=== PATIENT | male | born 1980 | race Caucasian/White ===

== ENCOUNTER 2019-05-26 20:38 | Emergency (ER) | payer SELFPAY ==
[~2019-05-26] VITALS: Ht 177.8 cm; Wt 86.4 kg
[~2019-05-26 20:38] MED LIST: CYCL-394 PO; NO HOME MEDS; ONDA4TAB59 PO
[2019-05-26 20:58] VITALS: BP 114/67
[2019-05-26] MEDS ORDERED: LIDOcaine 1% W/epiNEPHrine 1:100,000 20ml vial SQ ONE (21:40)
[2019-05-26] MEDS ORDERED: morphine 4 MG/ML inj SYRINge IV PRN (21:45)
[2019-05-26] MEDS ORDERED: ondansetron/PF 4mg/2ml inj IV ONE (22:10)
[2019-05-26] MEDS: morphine 4 MG/ML inj SYRINge IV PRN ×2 (22:35→23:04)
[2019-05-26] MEDS ORDERED: SULF1TAB49 PO (23:05)
[2019-05-26] MEDS ORDERED: CEPH500C5 PO (23:05)
[2019-05-26] MEDS ORDERED: HYDR-4383 PO (23:06)
== END 2019-05-26 23:42 | disposition home or self-care (01) ==
LOC: ER 20:38
DX: L02.215 Cutaneous abscess of perineum (principal); J45.909 Unspecified asthma, uncomplicated; F12.90 Cannabis use, unspecified, uncomplicated; Z79.899 Other long term (current) drug therapy
CPT/HCPCS: 10060; 87070; 87077; 87185; 87186; 96374; 96375; 96376; 99283; J2270; J2405; 56405; 99284

== ENCOUNTER 2020-06-04 19:00 | Emergency (ER) | payer BC ==
[~2020-06-04] VITALS: Ht 177.8 cm; Wt 79.5 kg
[~2020-06-04 19:00] MED LIST changes: +HYDR-4383 PO
[2020-06-04 19:35] LABS: BASOPHILS # (AUTO) 0.1 X10'3 (0-0.2); BASOPHILS % (AUTO) 0.7 % (0-1); EOSINOPHILS % (AUTO) 0.3 % (0-6); HEMATOCRIT 48.5 % (42.0-52.0); HEMOGLOBIN 16.5 g/dl (14.0-17.9); LYMPHOCYTES # (AUTO) 1.6 X10'3 (1.1-4.8); LYMPHOCYTES % (AUTO) 18.9 % (21-51); MEAN CORPUSCULAR HEMOGLOBIN 30.6 PG (27.0-31.0); MEAN CORPUSCULAR HGB CONC 34.1 g/dL (33.0-36.5); MEAN CORPUSCULAR VOLUME 89.9 FL (78-98); MONOCYTES # (AUTO) 0.8 X10'3 (0-0.9); MONOCYTES % (AUTO) 9.4 % (2-12); NEUTROPHILS # (AUTO) 6.1 X10'3 (1.8-7.7); NEUTROPHILS % (AUTO) 70.7 % (42-75); PLATELET COUNT 301 X10'3 (140-440); RED BLOOD COUNT 5.39 X10'6 (4.70-6.10); RED CELL DISTRIBUTION WIDTH 12.9 % (11.5-14.5); WHITE BLOOD COUNT 8.7 X10'3 (4.5-11.0)
[2020-06-04] MEDS ORDERED: ondansetron/PF 4mg/2ml inj IV ONE ×2 (19:35→23:10)
[2020-06-04] MEDS ORDERED: normal saline 1000ml 1,000 ML IV ONE ×2 (19:35)
[2020-06-04] MEDS ORDERED: proCHLORperazine 10 MG/2 ml inj IV ONE ×2 (19:35→23:10)
[2020-06-04] MEDS ORDERED: diphenhydrAMINE 50 mg/ml inj IV ONE ×2 (19:35→23:10)
[2020-06-04 19:48] LABS: CLARITY,URINE CLEAR (Clear); COLOR,URINE YELLOW (Yellow); GLUCOSE, URINE NEGATIVE (Neg); KETONES,URINE >=80 mg/dl (Neg); LEUKOCYTE ESTERASE ,URINE NEGATIVE (Neg); NITRITES, URINE NEGATIVE (Neg); OCCULT BLOOD,URINE NEGATIVE (Neg); PROTEIN,URINE 30 mg/dl (Neg)
[2020-06-04 19:49] LABS: UA COLLECTION TYPE URINAL
[2020-06-04 19:49] LABS: ALANINE AMINOTRANSFERASE 13 U/L (12-78); ALBUMIN 4.9 G/DL (3.4-5.0); ALBUMIN/GLOBULIN RATIO 1.3 (1.1-1.5); ALKALINE PHOSPHATASE 68 IU/L (46-116); ANION GAP 18 (8-16); ASPARTATE AMINO TRANSFERASE 11 U/L (10-37); BILIRUBIN,TOTAL 0.9 MG/DL (0.1-1.0); BLOOD UREA NITROGEN 19 MG/DL (7-18); BUN/CREATININE RATIO 17.3 (5.4-32.0); CALCIUM 10.2 MG/DL (8.5-10.1); CHLORIDE 100 MMOL/L (99-107); GLUCOSE 177 MG/DL (70-104); LIPASE 54 U/L (73-393); POTASSIUM 3.5 MMOL/L (3.5-5.1); SODIUM 140 MMOL/L (135-145); TOTAL CARBON DIOXIDE 22.5 MMOL/L (24-32); TOTAL PROTEIN 8.7 G/DL (6.4-8.2); eGFR 75 ML/MIN
[2020-06-04 19:54] LABS: SQUAMOUS EPITHELIAL CELL,UR FEW /LPF (FEW)
[2020-06-04 19:55] LABS: MUCUS STRANDS MODERATE /LPF (Neg); RBC,URINE NONE SEEN /HPF (0-2); WBC,URINE 0-4 /HPF (0-4)
[2020-06-04 19:56] LABS: BACTERIA,URINE FEW /HPF (Neg)
[2020-06-04 19:59] LABS: SPERM FEW /HPF (NEGATIVE)
--- NOTE | 2020-06-04 22:35 | NUR ---
ophelia states pt can have water, so I gave him a pitcher of ice water per pt. request.
[2020-06-04] MEDS ORDERED: ONDA4TAB6 PO (22:37)
[2020-06-04] MEDS ORDERED: LORazepam 2 mg/ml vial IV ONE (23:15)
[2020-06-04] MEDS ORDERED: LORazepam 2 mg/ml vial IM ONE (23:20)
[2020-06-04] MEDS ORDERED: diphenhydrAMINE 50 mg/ml inj IM ONE (23:20)
[2020-06-04] MEDS ORDERED: proCHLORperazine 10 MG/2 ml inj IM ONE (23:20)
[2020-06-04 23:32] VITALS: BP 112/61
== END 2020-06-04 23:33 | disposition home or self-care (01) ==
LOC: ER 19:01
DX: R11.2 Nausea with vomiting, unspecified (principal); R50.9 Fever, unspecified; R10.9 Unspecified abdominal pain; R61 Generalized hyperhidrosis; J45.909 Unspecified asthma, uncomplicated; F12.90 Cannabis use, unspecified, uncomplicated; Z72.89 Other problems related to lifestyle; Z79.899 Other long term (current) drug therapy
CPT/HCPCS: 36415; 74176; 80053; 81001; 83605; 83690; 85025; 96361; 96372; 96374; 96375; 99285; J0780; J1200; J2060; J2405; J7030

== ENCOUNTER 2020-06-06 11:37 | Emergency (ER) | payer BC ==
[~2020-06-06] VITALS: Ht 177.8 cm; Wt 81.8 kg
[~2020-06-06 11:37] MED LIST changes: +ONDA4TAB6 PO
[2020-06-06] MEDS ORDERED: ondansetron/PF 4mg/2ml inj IV ONE ×2 (11:50→15:05)
[2020-06-06] MEDS ORDERED: normal saline 1000ML IV soln IVB ONE ×3 (11:50→15:05)
[2020-06-06 12:34] LABS: BASOPHILS % (AUTO) 0.5 % (0-1); EOSINOPHILS % (AUTO) 0.1 % (0-6); HEMATOCRIT 45.6 % (42.0-52.0); HEMOGLOBIN 15.3 g/dl (14.0-17.9); LYMPHOCYTES # (AUTO) 1.2 X10'3 (1.1-4.8); LYMPHOCYTES % (AUTO) 14.4 % (21-51); MEAN CORPUSCULAR HEMOGLOBIN 30.3 PG (27.0-31.0); MEAN CORPUSCULAR HGB CONC 33.6 g/dL (33.0-36.5); MEAN CORPUSCULAR VOLUME 90.4 FL (78-98); MEAN PLATELET VOLUME 8.8 FL (7.4-10.4); MONOCYTES # (AUTO) 0.4 X10'3 (0-0.9); MONOCYTES % (AUTO) 4.8 % (2-12); NEUTROPHILS # (AUTO) 6.6 X10'3 (1.8-7.7); NEUTROPHILS % (AUTO) 80.2 % (42-75); PLATELET COUNT 278 X10'3 (140-440); RED BLOOD COUNT 5.04 X10'6 (4.70-6.10); RED CELL DISTRIBUTION WIDTH 12.9 % (11.5-14.5); WHITE BLOOD COUNT 8.2 X10'3 (4.5-11.0)
[2020-06-06 12:46] LABS: PARTIAL THROMBOPLASTIN TIME 23 SECONDS (22-32)
[2020-06-06 12:48] LABS: ALANINE AMINOTRANSFERASE 26 U/L (12-78); ALBUMIN 4.6 G/DL (3.4-5.0); ALBUMIN/GLOBULIN RATIO 1.4 (1.1-1.5); ALKALINE PHOSPHATASE 60 IU/L (46-116); ANION GAP 15 (8-16); ASPARTATE AMINO TRANSFERASE 32 U/L (10-37); BILIRUBIN,TOTAL 0.8 MG/DL (0.1-1.0); BLOOD UREA NITROGEN 17 MG/DL (7-18); CALCIUM 9.7 MG/DL (8.5-10.1); CHLORIDE 103 MMOL/L (99-107); CREATININE 1.06 MG/DL (0.60-1.10); GLUCOSE 201 MG/DL (70-104); MAGNESIUM 1.8 MG/DL (1.5-2.4); POTASSIUM 3.2 MMOL/L (3.5-5.1); SODIUM 141 MMOL/L (135-145); TOTAL CARBON DIOXIDE 23.1 MMOL/L (24-32); eGFR 79 ML/MIN
[2020-06-06 12:49] LABS: ETHANOL < 0.010 GM/DL (0.0-0.010)
[2020-06-06] MEDS ORDERED: magnesium 2GM in 50ml NS 50 ML IV ONE (13:00)
[2020-06-06] MEDS ORDERED: potassium Cl 10 mEq/100mL bag IV ONE ×2 (13:00→15:05)
[2020-06-06] MEDS ORDERED: pantoprazole 40 MG vial IV ONE (15:05)
[2020-06-06] MEDS ORDERED: haloperidol lactate 5mg/ml inj IM ONE (15:10)
[2020-06-06] MEDS ORDERED: PROM12.512 PO (16:03)
[2020-06-06] MEDS ORDERED: PANT20TA18 PO (16:03)
[2020-06-06 17:12] VITALS: BP 132/64
== END 2020-06-06 17:07 | disposition home or self-care (01) ==
LOC: ER 11:37
DX: R55 Syncope and collapse (principal); E86.0 Dehydration; K29.70 Gastritis, unspecified, without bleeding; E87.6 Hypokalemia; R11.2 Nausea with vomiting, unspecified; R53.1 Weakness; J45.909 Unspecified asthma, uncomplicated; F12.90 Cannabis use, unspecified, uncomplicated; Z72.89 Other problems related to lifestyle; Z79.2 Long term (current) use of antibiotics
CPT/HCPCS: 36415; 80053; 80320; 83735; 85025; 85610; 85730; 93005; 96361; 96365; 96366; 96368; 96372; 96375; 96376; 99285; C9113; J1630; J2405; J3475; J3480; J7030

== ENCOUNTER 2020-06-08 23:13 | Emergency (ER) | payer BC ==
[~2020-06-08] VITALS: Ht 177.8 cm; Wt 81.1 kg
[~2020-06-08 23:13] MED LIST changes: +PANT20TA18 PO; +PROM12.512 PO
[2020-06-08] MEDS ORDERED: haloperidol lactate 5mg/ml inj IM ONE (23:35)
[2020-06-08] MEDS ORDERED: LORazepam 2 mg/ml vial IM ONE (23:35)
[2020-06-08] MEDS ORDERED: diphenhydrAMINE 50 mg/ml inj IM ONE (23:35)
[2020-06-09 00:33] LABS: CLARITY,URINE SLIGHTLY CLOUDY (Clear); COLOR,URINE AMBER (Yellow); GLUCOSE, URINE NEGATIVE (Neg); KETONES,URINE 40 mg/dl (Neg); LEUKOCYTE ESTERASE ,URINE NEGATIVE (Neg); NITRITES, URINE NEGATIVE (Neg); OCCULT BLOOD,URINE NEGATIVE (Neg); PH,URINE 6.5 (4.8-8.0); PROTEIN,URINE TRACE mg/dl (Neg)
[2020-06-09 00:38] VITALS: BP 142/50
[2020-06-09 00:38] LABS: UA COLLECTION TYPE CLN CATCH MIDSTREAM
[2020-06-09 00:41] LABS: BACTERIA,URINE NONE SEEN /HPF (Neg); RBC,URINE NONE SEEN /HPF (0-2); WBC,URINE 0-4 /HPF (0-4)
[2020-06-09 00:42] LABS: MUCUS STRANDS MANY /LPF (Neg); SQUAMOUS EPITHELIAL CELL,UR FEW /LPF (FEW)
== END 2020-06-09 00:40 | disposition home or self-care (01) ==
LOC: ER 23:15
DX: R11.2 Nausea with vomiting, unspecified (principal); J45.909 Unspecified asthma, uncomplicated; F12.90 Cannabis use, unspecified, uncomplicated; Z72.89 Other problems related to lifestyle; Z79.899 Other long term (current) drug therapy
CPT/HCPCS: 81001; 96372; 99284; J1200; J1630; J2060

== ENCOUNTER 2023-03-07 00:45 | Emergency (ER) | payer BC ==
[~2023-03-07] VITALS: Ht 180.3 cm; Wt 81.8 kg
[2023-03-07 01:25] LABS: BASOPHILS % (AUTO) 0.5 % (0-1); EOSINOPHILS % (AUTO) 0 % (0-6); HEMATOCRIT 45.3 % (42.0-52.0); HEMOGLOBIN 15.4 g/dl (14.0-17.9); LYMPHOCYTES % (AUTO) 13.8 % (21-51); MEAN CORPUSCULAR VOLUME 90.9 FL (78-98); MEAN PLATELET VOLUME 8.4 FL (7.4-10.4); MONOCYTES # (AUTO) 0.4 X10'3 (0-0.9); MONOCYTES % (AUTO) 5.8 % (2-12); NEUTROPHILS # (AUTO) 5.9 X10'3 (1.8-7.7); NEUTROPHILS % (AUTO) 79.9 % (42-75); PLATELET COUNT 272 X10'3 (140-440); RED BLOOD COUNT 4.98 X10'6 (4.70-6.10); RED CELL DISTRIBUTION WIDTH 13.3 % (11.5-14.5); WHITE BLOOD COUNT 7.3 X10'3 (4.5-11.0)
[2023-03-07 01:51] LABS: ALANINE AMINOTRANSFERASE 24 U/L (12-78); ALBUMIN 4.4 G/DL (3.4-5.0); ALBUMIN/GLOBULIN RATIO 1.3 (1.1-1.5); ALKALINE PHOSPHATASE 58 IU/L (46-116); ANION GAP 19 (8-16); ASPARTATE AMINO TRANSFERASE 11 U/L (10-37); BILIRUBIN,TOTAL 0.9 MG/DL (0.1-1.0); BLOOD UREA NITROGEN 18 MG/DL (7-18); BUN/CREATININE RATIO 18.8 (10.0-20.0); CALCIUM 9.9 MG/DL (8.5-10.1); CHLORIDE 102 MMOL/L (99-107); CREATININE 0.96 MG/DL (0.60-1.10); GLUCOSE 251 MG/DL (70-104); LIPASE 52 U/L (73-393); POTASSIUM 3.4 MMOL/L (3.5-5.1); SODIUM 141 MMOL/L (135-145); TOTAL CARBON DIOXIDE 20.1 MMOL/L (24-32); TOTAL PROTEIN 7.8 G/DL (6.4-8.2); eGFR 87 ML/MIN
[2023-03-07] MEDS ORDERED: normal saline 1000ml 1,000 ML IV ONE ×2 (02:45→03:05)
[2023-03-07] MEDS ORDERED: ondansetron/PF 4mg/2ml inj IV ONE (02:45)
[2023-03-07] MEDS ORDERED: POTASSIUM BICARB 20meq eff tab 20 MEQ TABLET.EFF PO ONE (02:45)
[2023-03-07] MEDS ORDERED: ketorolac trometh. 30mg/ml inj. IV ONE (02:45)
[2023-03-07] MEDS ORDERED: LORazepam 2 mg/ml vial IV ONE (03:05)
[2023-03-07] MEDS ORDERED: proCHLORperazine 10 MG/2 ml inj IV ONE (03:05)
[2023-03-07 04:05] VITALS: BP 146/85
[2023-03-07] MEDS ORDERED: ONDA8TAB13 PO (05:49)
[2023-03-07] MEDS ORDERED: ondansetron 4mg rapidly disintigrating tab PO ONE (06:07)
--- NOTE | 2023-03-07 06:13 | NUR ---
IV DC'D PTY BEING DISCHARGED DRESSING APPLIED
== END 2023-03-07 06:14 | disposition home or self-care (01) ==
LOC: ER 00:45
DX: R11.10 Vomiting, unspecified (principal); J45.909 Unspecified asthma, uncomplicated; F12.90 Cannabis use, unspecified, uncomplicated
CPT/HCPCS: 36415; 80053; 83690; 85025; 96361; 96374; 96375; 99284; J0780; J1885; J2405; J7030; A4615; J2060

== ENCOUNTER 2025-02-12 06:32 | Emergency (ER) | payer BC ==
[~2025-02-12] VITALS: Ht 177.8 cm; Wt 59.3 kg
[~2025-02-12 06:32] MED LIST changes: -CYCL-394 PO; -HYDR-4383 PO; +ONDA-245 PO; -ONDA4TAB59 PO; -ONDA4TAB6 PO; -PANT20TA18 PO; -PROM12.512 PO
[2025-02-12 06:34] VITALS: TEMP 97.8
--- NOTE | 2025-02-12 07:48 | Physician Documentation ---
History of Present Illness ~ Chief Complaint: Bite-insect Stated Complaint: CYST Time Seen by MD: 07:46 Primary Medical Doctor: none HPI 44-year-old male presenting with a painful bump on his left lower back. The patient reports that he has a history of MRSA and from time to time he will get these local infections that he usually has to take antibiotics for. He states that sometimes he will develop an abscess that has to be drained. This one started appearing her couple of days ago and has been growing since. He states that it started to get a little painful. States that he thinks that he may have been bitten by something but he is unsure. Denies any fever, chills or any other associated symptoms. Tetanus within 5 years?: No Medication Reconciliation Allergies: Coded Allergies: No Known Allergies (Unverified , 02/12/25) Scheduled Ondansetron 8mg ODT (Ondansetron Odt), 1 TAB PO Q8H Miscellaneous Medications Home Med List (No Home Medications), (Reported) Past Medical History Past Medical History: Allergic Rhinitis, Asthma Past Surgical History: no surgical history Alcohol Use: Occasionally Drug Use: marijuana Lives with: S/O Lives In: Home Occupation: employed Review of Systems All Other Systems at this time: Reviewed and Negative Physical Exam Vital Signs: Temperature: 97.8, Source: Temporal, Heart Rate: 74, Respiratory Rate: 15, BP: 122/77, Pulse Oximetry: 99, Weight: 59.300 Physical Exam I have reviewed the triage vitals. CONST: Well developed and well nourished. In no acute distress HENT: Head Atraumatic EYES: Pupils are equal, round and reactive to light. Normal conjunctiva NECK: Normal range of motion. Supple. CARDIO: Normal rate and regular rhythm. No murmurs, rubs, or gallops. S1, S2. PULM/CHEST: No respiratory distress. Lungs clear to auscultation. No wheeze ABD: Soft and nontender. Nondistended. Bowel sounds normal. No guarding. : Exam deferred MSK: No edema. No deformity. NEURO: Alert and oriented to person, place and time. Moving all extremities SKIN: Warm and dry. There is a 3 cm x 3 cm lump located on the left lower thoracic region that is erythematous, indurated with a central fluctuant area. PSYCH: Normal mood and affect. Good eye contact. Procedures I & D Procedure : Site: left lower back Anesthesia: Lidocaine w/ Epi Volume Anesthetic (mls): 8 Blade Size: 11 Prep/Supplies: betadine prep, drapes applied, packing placed Incision: mass incised, pus drained Tolerated Procedure Well?: yes, no complications Progress Results/Orders Results/Orders Completed Orders - GELACIO RICE MD Lidocaine 1% W/Epi 1:100,000 (Xylocaine (02/12/25 08:25) Vital Signs 02/12/25 06:34 Temp 97.8 Pulse 74 Resp 15 B/P (MAP) 122/77 Pulse Ox 99 Medical Decision Making Additional Comment 44-year-old male presenting with a left lower back abscess. The abscess was incised and drained. Given that he has a history of MRSA and there is some surrounding induration I will go ahead and treat it for surrounding cellulitis. Patient was given a prescription for Bactrim and Keflex for seven days. Patient advised to take the medication as prescribed. He was advised to return in two days or follow up with the urgent care or his primary care physician a for a wound check and packing removal. Advised to take the medication as prescribed. Return to the ED sooner with any worsening symptoms. Departure Disposition: 01 HOME / SELF CARE / HOMELESS Impression: Primary Impression: Abscess Additional Impression: Cellulitis Discharge Instructions: Abscess, Care After Additional Instructions: Please take the medication as prescribed. Please return to the ED or follow up with her primary care physician or urgent care for packing removal and a wound check. Return to the ED sooner with any increased bleeding, increased pain or other worsening symptoms. Referrals: NO PRIMARY CARE PROVIDER (PCP) Prescriptions Sulfamethoxazole/Trimethoprim (Bactrim Ds Tablet) 800 Mg-160 Mg Tablet 1 TAB PO Q12H for 7 Days, #14 TAB Prov: GELACIO RICE MD 02/12/25 Cephalexin Monohydrate (Cephalexin) 500 Mg Capsule 1 CAP PO Q12H for 7 Days, #14 CAP Prov: GELACIO RICE MD 02/12/25 Signature Scribe Signature: 1 Attestation: 1 GELACIO RICE MD Feb 12, 2025 07:48
[2025-02-12] MEDS: LIDOcaine 1% W/epiNEPHrine 1:100,000 20ml vial SQ ONE (08:25)
[2025-02-12] MEDS ORDERED: SULF1TAB49 PO (08:48)
[2025-02-12] MEDS ORDERED: CEPH500C2 PO (08:48)
[2025-02-12 08:55] VITALS: BP 134/88; PULSE 75; RESP 16; O2SAT 99
== END 2025-02-12 08:56 | disposition home or self-care (01) ==
LOC: ER 06:33
DX: L02.212 Cutaneous abscess of back [any part, except buttock and flank] (principal); L03.312 Cellulitis of back [any part except buttock and flank]; J45.909 Unspecified asthma, uncomplicated; F12.90 Cannabis use, unspecified, uncomplicated
CPT/HCPCS: 10060; 99283; A6266; A6449